=== PATIENT | male | born 1950 | race Caucasian/White ===

== ENCOUNTER 2016-11-10 07:36 | Day surgery (SDC) | payer MEDICARE, MEDICAID ==
[~2016-11-10 07:36] MED LIST: Midazolam 1 MG/ML 2 ML SDV ONE; Propofol 200 MG/20 ML SDV ONE; fentaNYL 100 MCG/2 ML SDV ONE
[2016-11-10] MEDS ORDERED: Dextrose 5%-Lactated Ringers 1,000 ML IV SCH (08:45)
[2016-11-10] MEDS ORDERED: Bupivacaine 0.5% 50 ML MDV ONE (08:48)
[2016-11-10] MEDS ORDERED: Lidocaine 1% with EPINEPHrine 1:200,000 30 ML SDV ONE (08:48)
[2016-11-10] MEDS ORDERED: ceFAZolin 2 GM in Premix Bag 1 BAG IV ONE (09:30)
[2016-11-10] MEDS ORDERED: Atropine 0.4 MG/ML SDV ONE (09:36)
[2016-11-10] MEDS ORDERED: Propofol 200 MG/20 ML SDV ONE (09:39)
[2016-11-10] MEDS ORDERED: Ketorolac 60 MG/2 ML SDV ONE (10:31)
[2016-11-10 13:13] VITALS: BP 168/71
--- NOTE | 2016-11-12 13:13 | OR ---
DATE OF PROCEDURE: 11/10/2016 PREOPERATIVE DIAGNOSIS: Right inguinal hernia. POSTOPERATIVE DIAGNOSIS: 1. Sliding right inguinal hernia. 2. Right ilioinguinal nerve at risk for scar entrapment. OPERATIVE PROCEDURE: 1. Open repair of sliding right inguinal hernia with mesh plug technique ([id number]). 2. Division and partial excision of right ilioinguinal nerve (38123). ANESTHESIA: Local plus IV sedation. CLUB WAITER/WAITRESS: Yaneth Austin PA-C and RASHAAD Jones student. INDICATION FOR PROCEDURE: A 66-year-old male presenting with increasing symptomatic right inguinal hernia. After preoperative evaluation and discussion, he wished to proceed with a repair using mesh plug technique. Potential risks including bleeding, infection, injury to underlying viscera, recurrence of hernia, mesh becoming infected, chronic pain following the hernia repair were all reviewed, and the patient wishes to proceed. DETAILS OF PROCEDURE: The patient was taken to the operating room, placed in a supine position. After identifying the hernia in the preoperative area, IV sedation was administered, after which the abdomen and groin areas were prepped and draped. The right ilioinguinal nerve as seen from the inguinal floor on the right side was anesthetized with 1% lidocaine mixed with Marcaine. A standard right inguinal incision was made and carried down through the skin and subcutaneous tissue and through the external oblique aponeurosis. Subaponeurotic flaps were raised superiorly and inferiorly. The ilioinguinal nerve coursed across the inguinal floor with a flat portion of the mesh where the system would eventually be laid. It was felt to be high risk for a wound entrapment and discussed with the patient preoperatively. This was then divided and removed at the far lateral extent of the incision to minimize chances of postoperative neuropathic pain. At this point, the patient was noted to have an intact floor medially. The patient had an obvious indirect hernia. The cremasteric fibers were divided and the hernia sac was then dissected down to the level of the internal ring. It appeared to have a sliding component, the upper aspect of the sac was opened to confirm that and it did contain some urinary bladder as part of the wall of the hernia sac medially. This area was re-sutured with a 3-0 Vicryl pursestring stitch and then replaced back into the peritoneal cavity and a large mesh plug was then selected. This was fixed to Evangelista's ligament easily with titanium tacking screws, bringing the underside of the conjoint tendon medially, superiorly, laterally, with horizontal mattress sutures of 0 Vicryl stitch. The flat portion of the mesh plug system was then draped across the floor and sutured lateral to the cord structures with 3-0 Vicryl stitch and fixed to the pubic tubercle with titanium tacking screws over this. The external oblique aponeurosis was approximated over the cord structures with a running 4-0 Vicryl stitch as was Julian's fascia and the skin closed with a 4-0 Vicryl subcuticular stitch. Dressing was applied. The patient was taken to the recovery room in satisfactory condition. Physician assistant director, Yaneth Austin played an essential role in assisting in this case, helping to retract structures as needed, as well as cutting sutures, suturing, and helping position the patient. Her presence improved the patient's safety and decreased operative time. Rayo Alba MD /[id number]
== END 2016-11-10 13:15 | disposition home or self-care (01) ==
LOC: JP.SDS 07:36
PROVIDERS: ATTEND Surgery
PROC: 0YU50JZ Supplement Right Inguinal Region with Synthetic Substitute, Open Approach (ICD-10-PCS; principal; 2016-11-10)
PROC: 01BB0ZZ Excision of Lumbar Nerve, Open Approach (ICD-10-PCS; 2016-11-10)
DX: K40.90 Unilateral inguinal hernia, without obstruction or gangrene, not specified as recurrent (principal); G57.81 Other specified mononeuropathies of right lower limb
CPT/HCPCS: 36415; 49525; 64772; 82728; 83735; 84100; C1781; J0461; J0690; J1885; J2250; J2704; J3010; J7042; 88302